=== PATIENT | female | born 1995 | race Caucasian/White ===

== ENCOUNTER 2016-05-16 03:17 | Emergency (ER) | payer MEDICAID, OTHER ==
[~2016-05-16] VITALS: Ht 165.1 cm; Wt 70.5 kg
[~2016-05-16 03:17] MED LIST: CEPH500C PO
[2016-05-16 03:34] VITALS: Ht 165.1 cm; Wt 70.5 kg
[2016-05-16 06:53] LABS: ADD UMIC YES; URINE BILIRUBIN (Dip) NEGATIVE (NEGATIVE); URINE BLOOD (Dip) NEGATIVE (NEGATIVE); URINE COLOR LT. YELLOW (YELLOW); URINE GLUCOSE (Dip) NEGATIVE (NEGATIVE); URINE KETONES (Dip) NEGATIVE (NEGATIVE); URINE LEUKOCYTE ESTERASE (Dip) TRACE (NEGATIVE); URINE NITRITE (Dip) NEGATIVE (NEGATIVE); URINE TOTAL PROTEIN (Dip) NEGATIVE (NEGATIVE); URINE UROBILINOGEN (Dip) 0.2 E.U./dL (0.1-1.0)
[2016-05-16 06:55] LABS: BASOPHILS % 0.4 % (0.0-2.0); EOSINOPHILS # 0.1 10^3/ul (0.0-0.5); EOSINOPHILS % 1.1 % (0.0-7.0); HEMATOCRIT 42.7 % (37.0-47.0); HEMOGLOBIN 14.4 g/dl (12.0-16.0); LYMPHOCYTES # 2.1 10^3/ul (0.8-2.9); LYMPHOCYTES % 19.5 % (18.0-55.0); MEAN CORPUSCULAR HEMOGLOBIN 29.3 pg (29.0-33.0); MEAN CORPUSCULAR HGB CONC 33.8 g/dl (32.0-37.0); MEAN CORPUSCULAR VOLUME 86.9 fl (72.0-104.0); MONOCYTE # 0.8 10^3/ul (0.3-0.9); MONOCYTES % 7.3 % (0.0-13.0); NEUTROPHIL # 7.8 10^3/ul (1.6-7.5); NEUTROPHILS % 71.7 % (30.0-74.0); RED BLOOD COUNT 4.92 10^6/ul (4.20-5.40); UNCORRECTED WBC 10.9 10^3/ul (4.8-10.8); WHITE BLOOD COUNT 10.9 10^3/ul (4.8-10.8)
[2016-05-16 06:59] LABS: CONDITION 1; LH ANALYZER COMMENTS 1; SUSPECT 1
[2016-05-16 07:02] LABS: SQUAMOUS EPITHELIAL CELL,UR FEW; URINE RBCS NONE SEEN /HPF (0)
[2016-05-16 07:07] LABS: ALBUMIN 4.6 g/dl (3.3-4.9)
[2016-05-16 07:09] LABS: CREATININE 0.61 mg/dl (0.44-1.00)
[2016-05-16 07:10] LABS: ALBUMIN/GLOBULIN RATIO 1.31; BILIRUBIN,INDIRECT 0.2 mg/dl (0-1.1); BILIRUBIN,TOTAL 0.2 mg/dl (0.2-1.3); TOTAL PROTEIN 8.1 g/dl (6.1-8.1)
[2016-05-16 07:11] LABS: CALCIUM 9.9 mg/dl (8.4-10.2)
--- NOTE | 2016-05-16 07:27 | RADRPT ---
PROCEDURE: US Pelvis. CLINICAL INDICATION: Right lower quadrant pain. TECHNIQUE: Multiple sonographic images of the pelvis were obtained utilizing a transabdominal and endovaginal technique. The images were reviewed on a PACS workstation. COMPARISON: CT abdomen pelvis 07/05/2014 FINDINGS: The uterus is retroverted and measures 7.2 x 4.1 x 6.0 cm. The endometrial echo complex is remarkabl e for an IUD and measures 6.9 mm. There is no evidence for free fluid. The right ovary has a normal echotexture and measures 3.3 x 1.9 x 2.2 cm. The left ovary has a normal echotexture and measures 3 .0 x 2.2 x 1.8 cm. No adnexal masses are noted. IMPRESSION: 1. IUD in the endometrium. Uterus is otherwise unremarkable in appearance. 2. Ovaries and adnexa appear unremarkable. RPTAT: [facility] Physician Katie Date Time Electronically viewed and signed by Physician Katie on 05/16/2016 07:27 /
--- NOTE | 2016-05-16 07:38 | RADRPT ---
PROCEDURE: CT abdomen and pelvis without contrast and with 3-D reconstructions CLINICAL INDICATION: RLQ pain TECHNIQUE: CT scan of the abdomen and pelvis without contrast was performed on a multislice CT [facility]. 3-D sagittal and coronal reformatted images were obtained from the axial source images. DLP 546.50 mGycm CTDIvol 9.69 mGy COMPARISON: Pelvic ultrasound from 05/16/[address] abdomen/pelvis from 07/05/2014 FINDINGS: The visualized lung bases are unremarkable. The liver is homogenous in attenuation. There are no focal liver lesions. There is no intrahepatic or extrahepatic biliary ductal dilatation. The gallbladder is within normal limits. The spleen, pancreas, and adrenal glands are within normal limits. The kidneys are symmetric and without focal lesions. There are no renal calculi. There is no obstruc tive uropathy. There are no dilated or thickened loops of bowel. Normal appendix. The aorta is within normal limits. There are no enlarged mesenteric, periaortic, or retroperitoneal lymph nodes. The bladder is within normal limits. An intrauterine device is noted within a retroverted uterus. Th ere is no free air. There is no free fluid. There are no enlarged intrapelvic or inguinal lymph nodes. Osseous and soft tissue structures are unremarkable. IMPRESSION: Unremarkable CT scan of the abdomen and pelvis. Normal appendix. No renal/ureteral calculi or hydronephrosis. An intrauterine device is again noted. RPTAT: EE Physician Jamir Date Time Electronically viewed and signed by Physician Jamir on 05/16/2016 07:38 /
[2016-05-16] MEDS ORDERED: ACET-141 PO (07:47)
--- NOTE | 2016-05-16 07:52 | ERD ---
ER Documentation Chief Complaint Date/Time DATE: 05/16/16 TIME: 07:49 Chief Complaint Pelvic pain HPI 20-year-old female comes in with right-sided lower abdominal pain that started a week ago. Patient states that she has had on and off vomiting and diarrhea this week, pain is described as achy, moderate and localized to the right side only. She has not had any vaginal bleeding fevers, chills. At this time she denies urinary complaints contrary to triage note. ROS All systems reviewed and are negative except as per history of present illness. Medications Home Meds Active Scripts Acetaminophen* (Acetaminophen*) 500 MG Extra Strength Tablet, 500 MG PO Q4H Y for PAIN AND OR ELEVATED TEMP, #20 TAB Prov:LULY GONG PA-C 05/16/16 Reported Medications Cephalexin* (Cephalexin*) 500 Mg Capsule, 500 MG PO QID, CAP 07/05/14 Allergies Allergies: Coded Allergies: No Known Allergies (Verified Allergy, Unknown, 06/23/14) PMhx/Soc Medical and Surgical Hx: pt denies Medical Hx, pt denies Surgical Hx History of Surgery: No Anesthesia Reaction: No Hx Neurological Disorder: No Hx Respiratory Disorders: No Hx Cardiac Disorders: No Hx Psychiatric Problems: No Hx Miscellaneous Medical Probl: No Hx Alcohol Use: No Hx Substance Use: No Hx Tobacco Use: No Smoking Status: Never smoker Physical Exam Vitals Vital Signs Date Time Temp Pulse Resp B/P Pulse Ox O2 Delivery O2 Flow Rate FiO2 05/16/16 03:34 97.6 90 20 122/77 98 Physical Exam General: Well-developed, well-nourished. The patient appears in no acute distress. HEENT: Head is normocephalic, atraumatic. No scleral icterus. Neck: Supple. Nontender. Lungs: Clear to auscultation. Normal air movement. Heart: Regular rate and rhythm. S1 and S2 are normal. No murmurs, gallops, or rubs. Abdomen: Soft, tender in right lower quadrant, no rebound pain, masses or peritoneal signs, nondistended. Bowel sounds are normoactive. Extremities: No clubbing or cyanosis. Normal pulses. Moving extremities x 4. No weakness. Neurologic: Alert and oriented 3. No focal deficits. Skin: Normal turgor. No rash or lesions. Result Diagram: 05/16/16 0635 05/16/16 0635 Results 24 hrs Laboratory Tests Test 05/16/16 06:35 05/16/16 06:38 Alanine Aminotransferase (ALT/SGPT) 23IU/L Albumin 4.6g/dl Albumin/Globulin Ratio 1.31 Alkaline Phosphatase 91IU/L Anion Gap 17 Aspartate Amino Transf (AST/SGOT) 18IU/L Basophils # 0.010^3/ul Basophils % 0.4% Blood Morphology Comment Blood Urea Nitrogen 8mg/dl Calcium Level 9.9mg/dl Carbon Dioxide Level 28mmol/L Chloride Level 102mmol/L Creatinine 0.61mg/dl Direct Bilirubin 0.00mg/dl Eosinophils # 0.110^3/ul Eosinophils % 1.1% Globulin 3.50g/dl Glucose Level 97mg/dl Hematocrit 42.7% Hemoglobin 14.4g/dl Indirect Bilirubin 0.2mg/dl Lipase 49U/L Lymphocytes # 2.110^3/ul Lymphocytes % 19.5% Mean Corpuscular Hemoglobin 29.3pg Mean Corpuscular Hemoglobin Concent 33.8g/dl Mean Corpuscular Volume 86.9fl Mean Platelet Volume 12.0fl Monocytes # 0.810^3/ul Monocytes % 7.3% Neutrophils # 7.810^3/ul Neutrophils % 71.7% Nucleated Red Blood Cells # 0.010^3/ul Nucleated Red Blood Cells % 0.0/100WBC Platelet Count Pending Potassium Level 4.0mmol/L Red Blood Count 4.9210^6/ul Red Cell Distribution Width 14.0% Sodium Level 143mmol/L Total Bilirubin 0.2mg/dl Total Protein 8.1g/dl White Blood Count 10.910^3/ul Urine Bilirubin NEGATIVE Urine Clarity CLEAR Urine Color LT. YELLOW Urine Glucose NEGATIVE% Urine Hemoglobin NEGATIVE Urine Ketones NEGATIVE Urine Leukocyte Esterase TRACE Urine Microscopic RBC NONE SEEN/HPF Urine Microscopic WBC 0-2/HPF Urine Nitrite NEGATIVE Urine Specific [place] 1.020 Urine Squamous Epithelial Cells FEW Urine Total Protein NEGATIVE Urine Urobilinogen 0.2 E.U./dL Urine pH 6.5 PROCEDURE: CT abdomen and pelvis without contrast and with 3-D reconstructions CLINICAL INDICATION: RLQ pain TECHNIQUE: CT scan of the abdomen and pelvis without contrast was performed on a multislice CT scanner. 3-D sagittal and coronal reformatted images were obtained from the axial source images. DLP 546.50 mGycm CTDIvol 9.69 mGy COMPARISON: Pelvic ultrasound from 05/16/[address] abdomen/pelvis from 07/05 FINDINGS: The visualized lung bases are unremarkable. The liver is homogenous in attenuation. There are no focal liver lesions. There is no intrahepatic or extrahepatic biliary ductal dilatation. The gallbladder is within normal limits. The spleen, pancreas, and adrenal glands are within normal limits. The kidneys are symmetric and without focal lesions. There are no renal calculi. There is no obstructive uropathy. There are no dilated or thickened loops of bowel. Normal appendix. The aorta is within normal limits. There are no enlarged mesenteric, periaortic , or retroperitoneal lymph nodes. The bladder is within normal limits. An intrauterine device is noted within a retroverted uterus. There is no free air. There is no free fluid. There are no enlarged intrapelvic or inguinal lymph nodes. Osseous and soft tissue structures are unremarkable. IMPRESSION: Unremarkable CT scan of the abdomen and pelvis. Normal appendix. No renal/ureteral calculi or hydronephrosis. An intrauterine device is again noted. RPTAT: EE Physician Jamir Date Time Electronically viewed and signed by Physician Jamir on 05/16/2016 07:38 PROCEDURE: US Pelvis. CLINICAL INDICATION: Right lower quadrant pain. TECHNIQUE: Multiple sonographic images of the pelvis were obtained utilizing a transabdominal and endovaginal technique. The images were reviewed on a PACS workstation. COMPARISON: CT abdomen pelvis 07/05/2014 FINDINGS: The uterus is retroverted and measures 7.2 x 4.1 x 6.0 cm. The endometrial echo complex is remarkable for an IUD and measures 6.9 mm. There is no evidence for free fluid. The right ovary has a normal echotexture and measures 3.3 x 1.9 x 2.2 cm. The left ovary has a normal echotexture and measures 3.0 x 2.2 x 1.8 cm. No adnexal masses are noted. IMPRESSION: 1. IUD in the endometrium. Uterus is otherwise unremarkable in appearance. 2. Ovaries and adnexa appear unremarkable. RPTAT: [facility] Physician Katie Date Time Electronically viewed and signed by Jose Raul Dumont Physician on 05/16/2016 07: 27 JH/ Procedures/MDM 20-year-old female comes in with right lower quadrant abdominal pain for a week now. Her history includes vomiting and diarrhea associated with this, the differential diagnosis includes gastroenteritis, mesenteric adenitis, appendicitis, ovarian torsion, TOA, PID, cervicitis, bowel obstruction, acute hepatobiliary process, pancreatitis and among others. At this time patient's workup is negative, and no significant pain on examination, CT was negative for appendicitis and pelvic ultrasound was also unremarkable. I believe her symptoms are likely from a viral process, she will be given instructions to take Tylenol at home and to recheck abdominal pain in 8-12 hours. Departure Diagnosis: Primary Impression: Abdominal pain Condition: Good Patient Instructions: Abdominal Pain Additional Instructions: Recheck abdominal pain in 8-12 hours. Return sooner for any worsening or new symptoms. LULY GONG PA-C May 16, 2016 07:51
[2016-05-16 09:31] LABS: PLATELET COUNT 145 10^3/UL (140-440)
== END 2016-05-16 07:52 | disposition home or self-care (01) ==
LOC: FTE 03:17
DX: R10.31 Right lower quadrant pain (principal); R10.2 Pelvic and perineal pain
CPT/HCPCS: 36415; 74176; 76830; 76856; 80053; 81001; 81003; 83690; 85025

== ENCOUNTER 2017-04-18 00:19 | Emergency (ER) | payer SELFPAY ==
[~2017-04-18] VITALS: Ht 165.1 cm; Wt 70.0 kg
[~2017-04-18 00:19] MED LIST changes: +ACET-141 PO
[2017-04-18 00:23] VITALS: Ht 165.1 cm; Wt 70.0 kg
== END 2017-04-18 01:37 | disposition left against medical advice (07) ==
LOC: FTE 00:19
DX: Z53.21 Procedure and treatment not carried out due to patient leaving prior to being seen by health care provider (principal)

== ENCOUNTER 2018-03-05 18:05 | Emergency (ER) | END 2018-03-05 18:30 | disposition left against medical advice (07) ==